=== PATIENT | female | born 1960 | race Caucasian/White ===

== ENCOUNTER 2016-08-12 09:56 | Day surgery (SDC) | payer OTHER ==
[~2016-08-12] VITALS: Ht 162.6 cm; Wt 87.5 kg
[~2016-08-12 09:56] MED LIST: CELEBREX200 MG PO; CHANTIX0.5 MG PO; FLONASE ALLERG9.9 ML BOTH NARES; KLONOPIN0.5 M1 PO; LEXAPRO20 MG PO; LIPITOR40 MG PO; LORCET 5-325 M1 EACH PO; LORCET PLUS 7.1 EACH PO; MORPHINE SULFAT15 MG PO; NEURONTIN100 MG PO; NEURONTIN300 MG PO; PROAIR HFA8.5 GM IH; PROTONIX40 MG PO; VERAPAMIL ER100 MG PO
== END 2016-08-12 12:37 | disposition home or self-care (01) ==
LOC: PAIN 09:56 → SDC 10:30 → PAIN 12:37
DX: M51.16 Intervertebral disc disorders with radiculopathy, lumbar region (principal); M53.3 Sacrococcygeal disorders, not elsewhere classified; M79.1 Myalgia; M46.1 Sacroiliitis, not elsewhere classified; I10 Essential (primary) hypertension; E78.5 Hyperlipidemia, unspecified; F17.210 Nicotine dependence, cigarettes, uncomplicated; E66.9 Obesity, unspecified; Z68.31 Body mass index [BMI] 31.0-31.9, adult; K59.03 Drug induced constipation; T40.2X5A Adverse effect of other opioids, initial encounter; F41.8 Other specified anxiety disorders; K21.9 Gastro-esophageal reflux disease without esophagitis; Z79.891 Long term (current) use of opiate analgesic; Z79.899 Other long term (current) drug therapy
CPT/HCPCS: J1030; J2250; J3010; S0020

== ENCOUNTER 2017-07-16 09:29 | Day surgery (SDC) | payer OTHER ==
[~2017-07-16] VITALS: Ht 162.6 cm; Wt 76.6 kg
[~2017-07-16 09:29] MED LIST changes: +OXYCONTIN15 MG PO
== END 2017-07-16 10:55 | disposition home or self-care (01) ==
LOC: PAIN 09:29 → SDC 10:15 → PAIN 10:55
DX: M47.816 Spondylosis without myelopathy or radiculopathy, lumbar region (principal); M51.16 Intervertebral disc disorders with radiculopathy, lumbar region; G89.29 Other chronic pain; M43.16 Spondylolisthesis, lumbar region; M46.1 Sacroiliitis, not elsewhere classified; M79.1 Myalgia; E78.5 Hyperlipidemia, unspecified; M70.61 Trochanteric bursitis, right hip; M70.62 Trochanteric bursitis, left hip; E66.9 Obesity, unspecified; F17.210 Nicotine dependence, cigarettes, uncomplicated; Z68.28 Body mass index [BMI] 28.0-28.9, adult; Z88.2 Allergy status to sulfonamides
CPT/HCPCS: J1030; J2250; S0020